=== PATIENT | female | born 1955 | race Caucasian/White ===

== ENCOUNTER 2016-06-04 02:53 | Observation (INO) | payer MEDICAID ==
[~2016-06-04] VITALS: Ht 167.6 cm; Wt 69.0 kg
[2016-06-04] VITALS (11 sets, daily range): BP systolic 117–148; BP diastolic 68–92; PULSE 81–92; RESP 16–20; TEMP 96.5–98.1; O2SAT 94–100
[~2016-06-04 02:53] MED LIST: ACET325S8 PO; ASPI81TA82 PO; CYCL-36 PO; DIAZ5 PO; FIORIC PO; IBUP600T26 PO; LISI-357 PO; SYNT100T PO; TRAM50 PO
[2016-06-04] MEDS ORDERED: MECL-62 PO (03:26)
[2016-06-04] MEDS ORDERED: LOVA40TA PO (03:26)
[2016-06-04] MEDS ORDERED: PREV30CA11 PO (03:26)
[2016-06-04] MEDS ORDERED: DICY20TA10 PO (03:26)
[2016-06-04] MEDS ORDERED: GABA300C5 PO (03:26)
[2016-06-04] MEDS ORDERED: LEVO25TA4 PO (03:26)
--- NOTE | 2016-06-04 03:58 | PD ---
HPI Chief Complaint: Abdominal Pain Time Seen by Provider: 03:53 Travel History International Travel<30 days: No Contact w/Intl Traveler<30days: No Traveled to known affect area: No History of Present Illness HPI The patient is a 60-year-old female that in September had a gastric bypass. The gastric bypass was done in [place] by Dr. Brooks. Several months after the gastric bypass was done she developed decreased appetite along with nausea and vomiting and she could not hold food down. She states she has lost weight. Now [place] and [place] wanted to do colonoscopy today. She took 2 tablets of Senokot before colonoscopy today and developed periumbilical pain. She does have nausea without vomiting. 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.) Diabetes: No Diminished Hearing: No Endocrine: No Gastrointestinal Disorders: Yes (ulcer) GERD: Yes Genitourinary: No Hepatitis: Yes Hiatal Hernia: Yes Immune Disorder: No Reproductive: No Respiratory: No Migraines: Yes (OCC.) Radiation Therapy: No Thyroid Disease: Yes Ulcer: Yes Tetanus Vaccination: > 5 Years Influenza Vaccination: Yes Past Surgical History Abdominal Surgery: Yes (GALLBLADDER) AICD: No Cholecystectomy: Yes Gynecologic Surgery: Yes (SID) Hysterectomy: Yes Joint Replacement: No Pacemaker: No Other Surgery: Yes Social History Alcohol Use: No Tobacco Use: No Substance Use: No Allergies-Medications (Allergen,Severity, Reaction): Coded Allergies: No Known Allergies (Verified , 06/04/16) Reported Meds & Prescriptions Reported Meds & Active Scripts Active Reported Meclizine (Meclizine HCl) 25 Mg Tab 25 Mg PO TID PRN Levothyroxine (Levothyroxine Sodium) 25 Mcg Tab 25 Mcg PO DAILY Dicyclomine (Dicyclomine HCl) 20 Mg Tab 20 Mg PO BID PRN Gabapentin 300 Mg Cap 300 Mg PO HS Lovastatin 40 Mg Tab 40 Mg PO DAILY Prevacid (Lansoprazole) 30 Mg Capdr 30 Mg PO DAILY Review of Systems Except as stated in HPI: all other systems reviewed are Neg Physical Exam Narrative GENERAL: The patient is alert, oriented 3 in moderate apparent distress with her periumbilical pain/nausea. Her vital signs show blood pressure 147/72 but otherwise normal. SKIN: Focused skin assessment warm/dry. HEAD: Atraumatic. Normocephalic. EYES: Pupils equal and round. No scleral icterus. No injection or drainage. ENT: No nasal bleeding or discharge. Mucous membranes pink and moist. NECK: Trachea midline. No JVD. CARDIOVASCULAR: Regular rate and rhythm. No murmur appreciated. RESPIRATORY: No accessory muscle use. Clear to auscultation. Breath sounds equal bilaterally. GASTROINTESTINAL: Abdomen soft, with tenderness in the periumbilical area to direct palpation, nondistended. Hepatic and splenic margins not palpable. No guarding or rebound is present. MUSCULOSKELETAL: No obvious deformities. No clubbing. No cyanosis. No edema. NEUROLOGICAL: Awake and alert. No obvious cranial nerve deficits. Motor grossly within normal limits. Normal speech. PSYCHIATRIC: Appropriate mood and affect; insight and judgment normal. Data Data Last Documented VS Vital Signs Date Time Temp Pulse Resp B/P Pulse Ox O2 Delivery O2 Flow Rate FiO2 06/04/16 06:06 98 Room Air 06/04/16 05:40 87 20 143/68 06/04/16 03:03 97.7 Orders Complete Blood Count With Diff (06/04/16 03:58) Comprehensive Metabolic Panel (06/04/16 03:58) Lipase (06/04/16 03:58) Ct Abd/Pel W Iv Contrast(Rout) (06/04/16 03:58) Iv Access Insert/Monitor (06/04/16 03:58) Ecg Monitoring (06/04/16 03:58) Oximetry (06/04/16 03:58) Ondansetron Inj (Zofran Inj) (06/04/16 04:00) Sodium Chloride 0.9% Flush (Ns Flush) (06/04/16 04:00) Ondansetron Inj (Zofran Inj) (06/04/16 05:30) Morphine Inj (Morphine Inj) (06/04/16 05:45) Iohexol 350 Inj (Omnipaque 350 Inj) (06/04/16 05:47) Labs Laboratory Tests Test 06/04/16 06/04/16 04:10 04:50 White Blood Count 8.8 TH/MM3 Red Blood Count 5.54 MIL/MM3 Hemoglobin 16.1 GM/DL Hematocrit 48.6 % Mean Corpuscular Volume 87.8 FL Mean Corpuscular Hemoglobin 29.1 PG Mean Corpuscular Hemoglobin 33.2 % Concent Red Cell Distribution Width 13.4 % Platelet Count 188 TH/MM3 Mean Platelet Volume 11.3 FL Neutrophils (%) (Auto) 78.0 % Lymphocytes (%) (Auto) 13.0 % Monocytes (%) (Auto) 4.1 % Eosinophils (%) (Auto) 0.1 % Basophils (%) (Auto) 4.8 % Neutrophils # (Auto) 6.9 TH/MM3 Lymphocytes # (Auto) 1.1 TH/MM3 Monocytes # (Auto) 0.4 TH/MM3 Eosinophils # (Auto) 0.0 TH/MM3 Basophils # (Auto) 0.4 TH/MM3 CBC Comment DIFF FINAL Differential Comment Sodium Level 141 MEQ/L Potassium Level 3.3 MEQ/L Chloride Level 102 MEQ/L Carbon Dioxide Level 20.2 MEQ/L Anion Gap 19 MEQ/L Blood Urea Nitrogen 12 MG/DL Creatinine 0.86 MG/DL Estimat Glomerular Filtration 67 ML/MIN Rate Random Glucose 122 MG/DL Calcium Level 9.5 MG/DL Total Bilirubin 1.2 MG/DL Aspartate Amino Transf 21 U/L (AST/SGOT) Alanine Aminotransferase 16 U/L (ALT/SGPT) Alkaline Phosphatase 89 U/L Total Protein 7.5 GM/DL Albumin 4.1 GM/DL Lipase 77 U/L MDM Medical Decision Making Medical Screen Exam Complete: Yes Emergency Medical Condition: Yes Medical Record Reviewed: Yes Interpretation(s) The CT scan shows scattered areas of fluid within the pelvis without drainable abscess or collection. Sutures in the stomach are from the gastric bypass. There are cholecystectomy clips no obvious etiology for abdominal pain is identified. The CBC shows a hemoglobin of 16.1 and hematocrit of 48.6. The complete metabolic profile shows a potassium of 3.3, bicarbonate of 20.2, anion gap of 19 with GFR of 67 and glucose 122 and total bilirubin 1.2 but is otherwise normal. The lipase is normal. Differential Diagnosis Small bowel obstruction, ileus, intestinal colic, electrolyte disorder, dehydration Narrative Course The patient already canceled the appointment for colonoscopy today. She was having too much pain and was vomiting. I cannot find a cause for her pain on the CT scan. The blood work shows a hemoconcentration which is likely from dehydration. Diagnosis Primary Impression: Intractable nausea and vomiting Additional Impressions: Mild dehydration Abdominal pain of unknown etiology Admitting Information Admitting Physician Requests: Observation Vivek Nash MD Jun 04, 2016 03:58
[2016-06-04] MEDS ORDERED: SODIUM CHLORIDE 0.9% FLUSH 10 ML FLUSH IV FLUSH PRN ×2 (04:00→07:00)
[2016-06-04] MEDS ORDERED: ONDANSETRON HCL 4 MG/2 ML VIAL IVP ONE (04:00)
[2016-06-04 04:21] LABS: AUTOMATED NEUTROPHIL # 6.9 TH/MM3 (1.8-7.7); BASOPHIL # 0.4 TH/MM3 (0-0.2); BASOPHIL % 4.8 % (0.0-2.0); EOSINOPHIL % 0.1 % (0.0-4.0); HEMATOCRIT 48.6 % (35.0-46.0); LYMPHOCYTE # 1.1 TH/MM3 (1.0-4.8); MEAN CELL VOLUME 87.8 FL (80.0-100.0); MEAN CORPUSCULAR HEMOGLOBIN 29.1 PG (27.0-34.0); MEAN CORPUSCULAR HGB CONC 33.2 % (32.0-36.0); MONO % 4.1 % (0.0-8.0); PLATELET COUNT 188 TH/MM3 (150-450); RED BLOOD COUNT 5.54 MIL/MM3 (4.00-5.30); RED CELL DISTRIBUTION WIDTH 13.4 % (11.6-17.2); WHITE BLOOD COUNT 8.8 TH/MM3 (4.0-11.0)
[2016-06-04 04:28] LABS: HEMO FLAGS DIFF FINAL
[2016-06-04 05:08] LABS: CHLORIDE 102 MEQ/L (98-107); POTASSIUM 3.3 MEQ/L (3.5-5.1); SODIUM (NA) 141 MEQ/L (136-145)
[2016-06-04 05:12] LABS: ANION GAP 19 MEQ/L (5-15); BICARBONATE 20.2 MEQ/L (21.0-32.0); BLOOD UREA NITROGEN 12 MG/DL (7-18)
[2016-06-04 05:14] LABS: ALT (GPT) 16 U/L (10-53); AST (GOT) 21 U/L (15-37)
[2016-06-04 05:15] LABS: GLOMERULAR FILTRATION RATE 67 ML/MIN (>89)
[2016-06-04 05:16] LABS: TOTAL BILIRUBIN ADULT 1.2 MG/DL (0.2-1.0)
[2016-06-04 05:17] LABS: ALKALINE PHOSPHATASE 89 U/L (45-117)
[2016-06-04] MEDS ORDERED: ONDANSETRON HCL 4 MG/2 ML VIAL IV ONE (05:30)
[2016-06-04] MEDS ORDERED: MORPHINE SULFATE 4 MG/ML INJ SQ ONE (05:30)
[2016-06-04] MEDS ORDERED: MORPHINE SULFATE 4 MG/ML INJ IV PUSH ONE (05:45)
[2016-06-04] MEDS ORDERED: IOHEXOL 350 MG/ML 10 ML VIAL (for RAD DIAG) IV ONE (05:47)
--- NOTE | 2016-06-04 05:58 | RADHPO ---
EXAM DATE/TIME: 06/04/2016 05:30 [facility] COMPARISON: No previous studies available for comparison. INDICATIONS : Left periumbilical pain. IV CONTRAST: 100 cc Omnipaque 350 (iohexol) IV ORAL CONTRAST: No oral contrast ingested. RADIATION DOSE: 7.29 CTDIvol (mGy) MEDICAL HISTORY : Hernia, hiatal. Gastroesophageal reflux disease. SURGICAL HISTORY : Cholecystectomy. Hysterectomy.Gastric bypass. ENCOUNTER: Initial ACUITY: 1 day PAIN SCALE: 10/10 LOCATION: Left periumbilical. TECHNIQUE: Volumetric scanning of the abdomen and pelvis was performed. Using automated exposure control and ad justment of the mA and/or kV according to patient size, radiation dose was kept as low as reasonably achievable to obtain optimal diagnostic quality images. FINDINGS: LOWER LUNGS: The visualized lower lungs are clear. Bilateral breast augmentation LIVER: Homogeneous density without lesion. There is no dilation of the biliary tree. Cholecystectomy clips. SPLEEN: Normal size without lesion. PANCREAS: Within normal limits. KIDNEYS: Normal in size and shape. There is no mass, stone or hydronephrosis. ADRENAL GLANDS: Within normal limits. VASCULAR: There is no aortic aneurysm. BOWEL/MESENTERY: Suture consistent gastric bypass . The small bowel, and colon demonstrate no acute abnormality. Ther e some small amounts of fluid within the pelvis. ABDOMINAL WALL: Within normal limits. RETROPERITONEUM: There is no lymphadenopathy. BLADDER: No wall thickening or mass. REPRODUCTIVE: Within normal limits. INGUINAL: There is no lymphadenopathy or hernia. MUSCULOSKELETAL: Within normal limits for patient age. CONCLUSION: Scattered areas of fluid within the pelvis without drainable abscess or collection. Sutures in the st omach suggests gastric bypass. Cholecystectomy clips. No obvious etiology for abdominal pain is iden tified Matthew Antunez MD on June 04, 2016 at 5:52 Board Certified Radiologist. This report was verified electronically.
[2016-06-04] MEDS ORDERED: NALOXONE HCL 0.4 MG/ML AMP IV PRN (07:00)
[2016-06-04] MEDS ORDERED: ONDANSETRON HCL 4 MG/2 ML VIAL IVP PRN (07:00)
[2016-06-04] MEDS ORDERED: SODIUM CHLOR 0.9% 1000 ML INJ 1,000 ML IV SCH (07:00)
[2016-06-04] MEDS: POTASSIUM CHLOR 20 MEQ PREMIX 100 ML IV SCH ×2 (07:21→10:22)
[2016-06-04] MEDS ORDERED: DICYCLOMINE HCL 20 MG TAB PO PRN (07:45)
[2016-06-04] MEDS ORDERED: ACETAMINOPHEN/HYDROcodone 325 MG/7.5 MG TAB PO PRN (07:45)
[2016-06-04] MEDS ORDERED: ACETAMINOPHEN/HYDROcodone 325 MG/5 MG TAB PO PRN (07:45)
[2016-06-04] MEDS ORDERED: ALUMINUM/MAGNESIUM/SIMETH 30 ML CUP PO PRN (07:45)
[2016-06-04] MEDS ORDERED: MAGNESIUM HYDROXIDE SUSP 30 ML CUP PO PRN (07:45)
[2016-06-04] MEDS ORDERED: MORPHINE SULFATE 4 MG/ML INJ IV PRN ×3 (07:45)
[2016-06-04] MEDS ORDERED: cloNIDine HCL 0.1 MG TAB PO PRN (07:45)
[2016-06-04] MEDS ORDERED: CALCIUM CARBONATE 500 MG CHEWABLE TAB CHEW PRN (07:45)
[2016-06-04] MEDS ORDERED: ENALAPRILAT 1.25 MG/ML VIAL IV PRN (07:45)
[2016-06-04] MEDS ORDERED: MECLIZINE HCL 25 MG TAB PO PRN (07:45)
[2016-06-04] MEDS ORDERED: ACETAMINOPHEN 325 MG TAB PO PRN (07:45)
[2016-06-04] MEDS ORDERED: DOCUSATE SODIUM 100 MG CAP PO PRN (07:45)
[2016-06-04] MEDS: PANTOPRAZOLE SODIUM 40 MG VIAL IV PUSH SCH (10:22)
[2016-06-04] MEDS: LEVOTHYROXINE SODIUM 25 MCG TAB PO SCH (10:22)
[2016-06-04] MEDS: SODIUM CHLORIDE 0.9% FLUSH 10 ML FLUSH IV FLUSH SCH ×2 (10:23→21:00)
--- NOTE | 2016-06-04 11:18 | HHI.HP ---
[facility] Mo Richmond DO Admission Diagnosis intractable nausea/vomiting, abdominal pain unknown etiology Diagnoses: Chief Complaint: Abdominal pain Travel History International Travel<30 Days: No Contact w/Intl Traveler <30 Da: No Traveled to Known Affected Are: No History of Present Illness 60-year-old female with past medical history GERD, hep B, hypothyroidism, HLD, gastric bypass who presented with abdominal pain. Patient had a gastric bypass done last September. Apparently she's been having more weight loss then anticipated and less intake than ideal so her woodworking machine operator was planning on EGD/colonoscopy. She states that last night in preparation for her colonoscopy she took 2 laxatives about 7 PM. She states that around 10 PM she had a sensation that she was kicked in the left side of her abdomen. She states the pain radiated from the left lower quadrant to the left upper quadrant. She had associated nausea, vomiting, and chills. She received pain medication the ED, states that the abdominal pain has resolved. She denies any further nausea. She would like to eat, but is only able to tolerate about 2 ounces of food without vomiting. She denies any fevers, diarrhea, constipation , or urinary symptoms. Her woodworking machine operator is Dr. Vaughn in [place]. Review of Systems Except as stated in HPI: all other systems reviewed are Neg Past Family Social History Past Medical History GERD Hepatitis B, status post treatment Hypothyroidism Hyperlipidemia Past Surgical History Gastric bypass 10/02 Knee replacement Cholecystectomy Hysterectomy Reported Medications Meclizine (Meclizine HCl) 25 Mg Tab 25 Mg PO TID PRN Levothyroxine (Levothyroxine Sodium) 25 Mcg Tab 25 Mcg PO DAILY Dicyclomine (Dicyclomine HCl) 20 Mg Tab 20 Mg PO BID PRN Gabapentin 300 Mg Cap 300 Mg PO HS Lovastatin 40 Mg Tab 40 Mg PO DAILY Prevacid (Lansoprazole) 30 Mg Capdr 30 Mg PO DAILY Allergies: Coded Allergies: No Known Allergies (Verified , 06/04/16) Active Ordered Medications Current Medications Medications (Trade) Dose Ordered Sig/Isamar Route Start Time Stop Time Status Last Admin (NS Flush) 2 ml UNSCH PRN IV FLUSH 06/04/16 04:00 06/04/16 04:37 (NS Flush) 2 ml UNSCH PRN IV FLUSH 06/04/16 07:00 (NS Flush) 2 ml BID IV FLUSH 06/04/16 09:00 06/04/16 10:23 (Zofran Inj) 4 mg Q6H PRN IVP 06/04/16 07:00 Naloxone HCl 0.4 mg 0.4 mg UNSCH PRN IV 06/04/16 07:00 Potassium Chloride 100 ml @ 50 mls/hr Q2H IV 06/04/16 08:00 06/04/16 11:59 06/04/16 10:22 (NS + KCl 20 Meq Inj) 1,000 ml @ 70 mls/hr [id number] IV 06/04/16 07:45 (Protonix Inj) 40 mg Q24H IV PUSH 06/04/16 08:00 06/04/16 10:22 (Vasotec Inj) 1.25 mg Q6H PRN IV 06/04/16 07:45 (Catapres) 0.1 mg Q6H PRN PO 06/04/16 07:45 (Tylenol) 650 mg Q6H PRN PO 06/04/16 07:45 (Alvo 5-325 Mg) 1 tab Q4H PRN PO 06/04/16 07:45 (Alvo 7.5-325 Mg) 1 tab Q4H PRN PO 06/04/16 07:45 (Morphine Inj) 1 mg Q3H PRN IV 06/04/16 07:45 (Morphine Inj) 2 mg Q3H PRN IV 06/04/16 07:45 (Morphine Inj) 2 mg Q3H PRN IV 06/04/16 07:45 (Colace) 100 mg BID PRN PO 06/04/16 07:45 (Milk Of Magnesia Liq) 30 ml DAILY PRN PO 06/04/16 07:45 (Mag-Al Plus Susp Liq) 30 ml Q6H PRN PO 06/04/16 07:45 (Tums Chew) 1,000 mg TID PRN CHEW 06/04/16 07:45 (Bentyl) 20 mg BID PRN PO 06/04/16 07:45 (Neurontin) 300 mg HS PO 06/04/16 21:00 (Synthroid) 25 mcg DAILY@0600 PO 06/04/16 09:00 06/04/16 10:22 (Antivert) 25 mg TID PRN PO 06/04/16 07:45 Family History Reviewed, no family history pertinent to current chief complaint Social History Denies any alcohol or tobacco use Physical Exam Vital Signs Vital Signs Date Time Temp Pulse Resp B/P Pulse Ox O2 Delivery O2 Flow Rate FiO2 06/04/16 10:58 91 06/04/16 08:00 97.3 92 16 136/92 100 06/04/16 07:04 98.1 91 16 147/74 94 Room Air 06/04/16 06:06 98 Room Air 06/04/16 05:52 18 06/04/16 05:40 87 20 143/68 98 Room Air 06/04/16 04:50 85 19 135/68 97 Room Air 06/04/16 03:03 97.7 90 20 147/72 100 Room Air Physical Exam GENERAL: Well-developed well-nourished. In no acute distress. SKIN: Warm and dry. No lesions noted. HEENT: Normocephalic. Pupils equal and round. Mucous membranes pink and moist. CARDIOVASCULAR: Regular rate and rhythm. No murmur appreciated. RESPIRATORY: No accessory muscle use. Clear to auscultation. Breath sounds equal bilaterally. GASTROINTESTINAL: Abdomen soft, non-tender, nondistended. Bowel sounds x4. MUSCULOSKELETAL: No obvious deformities. No clubbing or cyanosis. No edema. NEUROLOGICAL: Awake and alert. No focal neurological deficits. Moves upper and lower extremities spontaneously. Normal speech. PSYCHIATRIC: Appropriate mood and affect; insight and judgment normal. Laboratory Laboratory Tests Test 06/04/16 06/04/16 04:10 04:50 White Blood Count 8.8 Red Blood Count 5.54 Hemoglobin 16.1 Hematocrit 48.6 Mean Corpuscular Volume 87.8 Mean Corpuscular Hemoglobin 29.1 Mean Corpuscular Hemoglobin 33.2 Concent Red Cell Distribution Width 13.4 Platelet Count 188 Mean Platelet Volume 11.3 Neutrophils (%) (Auto) 78.0 Lymphocytes (%) (Auto) 13.0 Monocytes (%) (Auto) 4.1 Eosinophils (%) (Auto) 0.1 Basophils (%) (Auto) 4.8 Neutrophils # (Auto) 6.9 Lymphocytes # (Auto) 1.1 Monocytes # (Auto) 0.4 Eosinophils # (Auto) 0.0 Basophils # (Auto) 0.4 CBC Comment DIFF FINAL Differential Comment Sodium Level 141 Potassium Level 3.3 Chloride Level 102 Carbon Dioxide Level 20.2 Anion Gap 19 Blood Urea Nitrogen 12 Creatinine 0.86 Estimat Glomerular Filtration 67 Rate Random Glucose 122 Calcium Level 9.5 Magnesium Level 2.0 Total Bilirubin 1.2 Aspartate Amino Transf 21 (AST/SGOT) Alanine Aminotransferase 16 (ALT/SGPT) Alkaline Phosphatase 89 Total Protein 7.5 Albumin 4.1 Lipase 77 Result Diagram: 06/04/16 0410 06/04/16 0450 Imaging Last Impressions Abdomen/Pelvis CT 06/04/16 0358 Signed Impressions: Service Date/Time: Saturday, June 04, 2016 05:30 - CONCLUSION: Scattered areas of fluid within the pelvis without drainable abscess or collection. Sutures in the stomach suggests gastric bypass. Cholecystectomy clips. No obvious etiology for abdominal pain is identified Matthew Antunez MD Assessment and Plan Assessment and Plan 60-year-old female with past medical history GERD, hep B, hypothyroidism, HLD, gastric bypass who presented with abdominal pain Left-sided abdominal pain: Suspect secondary to laxatives for bowel prep for endoscopy. Abdominal CT with no obvious etiology for abdominal pain. Lipase within normal limits. Bilirubin 1.2. Labs with signs of dehydration. IVF. IV PPI. Antiemetics and Bentyl as needed. Oral and intravenous narcotics as needed for pain. Symptoms are improved at this time. We will advance diet as tolerated. The patient remains improved, can follow-up with her woodworking machine operator as outpatient, if further pain or vomiting we will consult gastroenterology for inpatient workup. Hyperglycemia: Random glucose 122. Possibly reactive from retching. Check hemoglobin A1c. Hypokalemia: Replaced by IV. Magnesium within normal limits. Hypothyroidism: Chronic, stable. Continue on levothyroxine. DVT prophylaxis: SCDs Written by Adithya Covarrubias, acting as scribe for Dr. Joe on 06/04/16 at 09:07. This note was transcribed by scribe []. I, Dr. Serjio Joe personally performed the history, physical exam, and medical decision making; and confirmed the accuracy of the information in the transcribed note. Authenticated by Dr. Serjio Joe on 06/04/16 at 21:40. Discussed Condition With Patient with friend at bedside Adithya Covarrubias Jun 04, 2016 11:18 Serjio Joe MD Jun 04, 2016 21:41
[2016-06-04] MEDS: NS + KCL 20 MEQ INJ 1,000 ML IV SCH ×2 (12:29→22:03)
[2016-06-04 18:08] LABS: HEMOGLOBIN A1b 1.3 %; HEMOGLOBIN Ao 86.8 %; HEMOGLOBIN LA1C 1.9 %; HEMOGLOBIN P3 3.5 %
[2016-06-04] MEDS ORDERED: GABAPENTIN 300 MG CAP PO SCH (21:00)
[2016-06-05] VITALS: BP 126/79; PULSE 79; RESP 16; TEMP 97.6; O2SAT 100
[2016-06-05 04:00] VITALS: BP 135/77; PULSE 69; RESP 16; TEMP 97.8; O2SAT 100
[2016-06-05] MEDS: NS + KCL 20 MEQ INJ 1,000 ML IV SCH (05:32)
[2016-06-05] MEDS: LEVOTHYROXINE SODIUM 25 MCG TAB PO SCH (05:34)
[2016-06-05 06:35] LABS: AUTOMATED NEUTROPHIL # 1.2 TH/MM3 (1.8-7.7); BASOPHIL # 0.1 TH/MM3 (0-0.2); BASOPHIL % 1.3 % (0.0-2.0); EOSINOPHIL # 0.1 TH/MM3 (0-0.4); EOSINOPHIL % 2.7 % (0.0-4.0); HEMATOCRIT 39.4 % (35.0-46.0); HEMO FLAGS DIFF FINAL; LYMPH % 55.9 % (9.0-44.0); LYMPHOCYTE # 2.3 TH/MM3 (1.0-4.8); MEAN CELL VOLUME 89.2 FL (80.0-100.0); MEAN CORPUSCULAR HGB CONC 31.4 % (32.0-36.0); MONO % 10.6 % (0.0-8.0); NEUT % 29.5 % (16.0-70.0); PLATELET COUNT 154 TH/MM3 (150-450); RED BLOOD COUNT 4.41 MIL/MM3 (4.00-5.30); RED CELL DISTRIBUTION WIDTH 13.7 % (11.6-17.2); WHITE BLOOD COUNT 4.1 TH/MM3 (4.0-11.0)
[2016-06-05 06:44] LABS: POTASSIUM 3.8 MEQ/L (3.5-5.1)
[2016-06-05 07:02] LABS: BICARBONATE 25.7 MEQ/L (21.0-32.0)
[2016-06-05 08:00] VITALS: BP 133/83; PULSE 78; RESP 17; TEMP 95.9; O2SAT 99
--- NOTE | 2016-06-05 09:24 | HHI.PR ---
Subjective Remarks Follow-up abdominal pain. She feels much better without recurrence of abdominal pain tolerating diet. Awaiting return call from her cable worker helper. Discussed with and RN Objective Vitals Vital Signs Date Time Temp Pulse Resp B/P Pulse Ox O2 Delivery O2 Flow Rate FiO2 06/05/16 04:00 97.8 69 16 135/77 100 06/05/16 00:00 97.6 79 16 126/79 100 06/04/16 20:35 81 06/04/16 20:00 97.6 83 18 117/79 100 06/04/16 16:00 97.9 88 16 121/78 100 06/04/16 12:00 96.5 87 16 148/75 100 06/04/16 10:58 91 I/O 06/04/16 06/04/16 06/04/16 06/05/16 06/05/16 06/05/16 07:00 15:00 23:00 07:00 15:00 23:00 Intake Total 100 ml 1564 ml 788 ml Balance 100 ml 1564 ml 788 ml Intake Oral 100 ml 440 ml 320 ml IV Total 1124 ml 468 ml # Voids 4 2 1 # Bowel Movements 0 0 0 Result Diagram: 06/05/16 0535 06/05/16 0535 Imaging Last Impressions Abdomen/Pelvis CT 06/04/16 0358 Signed Impressions: Service Date/Time: Saturday, June 04, 2016 05:30 - CONCLUSION: Scattered areas of fluid within the pelvis without drainable abscess or collection. Sutures in the stomach suggests gastric bypass. Cholecystectomy clips. No obvious etiology for abdominal pain is identified Matthew Antunez MD Objective Remarks GENERAL: Well-developed well-nourished. In no acute distress. SKIN: Warm and dry. No lesions noted. HEENT: Normocephalic. Pupils equal and round. Mucous membranes pink and moist. CARDIOVASCULAR: Regular rate and rhythm. No murmur appreciated. RESPIRATORY: No accessory muscle use. Clear to auscultation. Breath sounds equal bilaterally. GASTROINTESTINAL: Abdomen soft, non-tender, nondistended. Bowel sounds x4. MUSCULOSKELETAL: No obvious deformities. No clubbing or cyanosis. No edema. NEUROLOGICAL: Awake and alert. No focal neurological deficits. Moves upper and lower extremities spontaneously. Normal speech. Nonfocal PSYCHIATRIC: Appropriate mood and affect; insight and judgment normal. Procedures none A/P Problem List: (1) Intractable nausea and vomiting ICD Code: R11.2 Status: Acute (2) Abdominal pain of unknown etiology ICD Code: R10.9 Status: Acute Assessment and Plan 60-year-old female with past medical history GERD, hep B, hypothyroidism, HLD, gastric bypass who presented with abdominal pain Left-sided abdominal pain: Suspect secondary to laxatives for bowel prep for endoscopy. Abdominal CT with no obvious etiology for abdominal pain. Lipase within normal limits. Bilirubin 1.2. Labs with signs of dehydration. IVF. IV PPI. Antiemetics and Bentyl as needed. Oral and intravenous narcotics as needed for pain. Symptoms are improved at this time. We will advance diet as tolerated. The patient remains improved, can follow-up with her cable worker helper as outpatient (being workup for weight loss and early satiety ), if further pain or vomiting we will consult gastroenterology for inpatient workup. Hyperglycemia: Random glucose 122. Possibly reactive from retching. Check hemoglobin A1c 5.1. Hypokalemia: Replaced by IV. Magnesium within normal limits. Hypothyroidism: Chronic, stable. Continue on levothyroxine. DVT prophylaxis: SCDs Discharge Planning Discharge patient to home Condition on discharge: Improved Regular Diet as tolerated Ad Nadege activity no driving Rx written: None Follow-up with primary care physician and GI in 1 week Serjio Joe MD Jun 05, 2016 09:24
[2016-06-05] MEDS: PANTOPRAZOLE SODIUM 40 MG VIAL IV PUSH SCH (10:04)
[2016-06-05] MEDS: SODIUM CHLORIDE 0.9% FLUSH 10 ML FLUSH IV FLUSH SCH (10:04)
[2016-06-05 12:00] VITALS: BP 121/73; PULSE 79; RESP 18; TEMP 96.4; O2SAT 100
[2016-06-05] MEDS ORDERED: hydrALAZINE HCL 20 MG/ML VIAL IV PRN (13:00)
--- NOTE | 2016-06-05 13:19 | HHI.DCPOC ---
Discharge Care Plan Diagnosis: (1) Intractable nausea and vomiting (2) Abdominal pain of unknown etiology Your Health Problems Are: Difficulty with ADL Exercise Tolerance Goals to Promote Your Health * To prevent worsening of your condition and complications * To maintain your health at the optimal level Directions to Meet Your Goals Take your medications as prescribed Follow your dietary instruction Follow activity as directed Keep your appointments as scheduled Take your immunizations and boosters as scheduled If your symptoms worsen call your PCP, if no PCP go to Urgent Care Center or Emergency Room Smoking is Dangerous to Your Health. Avoid second hand smoke Call the 24-hour hour crisis hotline for domestic abuse at Serjio Joe MD Jun 05, 2016 13:19
== END 2016-06-05 15:27 | disposition home or self-care (01) ==
LOC: PHED 02:53 → PHEDA 06:33 → PH3A 08:00
PROVIDERS: ADMIT Internal Medicine; ATTEND Internal Medicine
DX: R10.33 Periumbilical pain (principal); R63.4 Abnormal weight loss; E87.6 Hypokalemia; R73.9 Hyperglycemia, unspecified; M19.90 Unspecified osteoarthritis, unspecified site; K21.9 Gastro-esophageal reflux disease without esophagitis; E03.9 Hypothyroidism, unspecified; E78.5 Hyperlipidemia, unspecified; F32.9 Major depressive disorder, single episode, unspecified; Z68.24 Body mass index [BMI] 24.0-24.9, adult; Z98.84 Bariatric surgery status; Z96.659 Presence of unspecified artificial knee joint
CPT/HCPCS: 74177; 80048; 80053; 83036; 83690; 83735; 85025; 96374; 96375; 99285; C9113; G0378; J2270; J2405; J3480; J7030; Q9967